=== PATIENT | male | born 1995 | race Two or more races ===

== ENCOUNTER 2016-07-09 02:37 | Emergency (ER) | payer MEDICAID ==
[2016-07-09 02:42] VITALS: BP 129/74
--- NOTE | 2016-07-09 03:45 | EDPHY ---
HPI/HX/ROS/PE/MDM Narrative: Chief complaint: Sore throat, sweats, HPI: 20-year-old male presenting with 2 days of sore throat, pain with swallowing. Subjective fevers and chills. He has a history of the same. Has not been told he has had strep or mono in the past. No chest pain shortness of breath. No nausea or vomiting. Denies past medical history. ROS: 10 point Review of Systems is negative except as noted in the HPI. Physical exam: Gen: Awake, Alert, No Distress HEENT: Nose: no rhinorrhea Eyes: PERRLA, EOMI Mouth: Moist mucosa significant bilateral tonsillar hypertrophy with exudate. There is no peritonsillar swelling. There is no uvular shift. No findings suggestive of a peritonsillar abscess at this time. Neck: Supple, no JVD, moderate cervical lymphadenopathy Chest: nontender, lungs clear to auscultation Heart: S1, S2 normal, no murmur Abd: Soft, non-tender, no guarding Back: no CVA tenderness, no midline tenderness Ext: no edema, non-tender Skin: no rash Neuro: CN II-XII intact, Sensation grossly intact, Strength 5/5 in bilateral upper and lower extremities ED Course: Strep screen and mono are negative. Will discharge patient with oral analgesia instructions follow with primary care physician in 2-3 days for re-evaluation. - Data Points Laboratory Results: 07/09/16 07/09/16 07/09/16 Unknown 03:46 03:15 Monoscreen NEGATIVE (NEGATIVE) Group A Strep Screen NEGATIVE (NEGATIVE) Group A Strep DNA Pending General Time Seen by Provider: 07/09/16 03:33 Initial Vital Signs: Initial Vital Signs Temperature (C) 37.7 C 07/09/16 02:39 Heart Rate 90 07/09/16 02:39 Respiratory Rate 16 07/09/16 02:39 Blood Pressure 129/74 H 07/09/16 02:39 O2 Sat (%) 93 07/09/16 02:39 O2 Delivery Mode Room Air Allergies/Adverse Reactions: No Known Allergies Allergy (Verified 02/03/16 13:54) Home Medications: Medication Instructions Recorded NO HOME MEDICATIONS 11/19/10 Hydrocodone/Acetaminophen 1 - 2 each PO Q4-6PRN PRN #10 07/09/16 [Hydrocodon-Acetaminophen 5-325] tablet Departure - Departure Disposition: Home, Routine, Self-Care Clinical Impression: Tonsillitis Condition: Good Instructions: Tonsillitis (ED) Additional Instructions: May take ibuprofen and acetaminophen as needed for pain. You may take hydrocodone for worsening pain. Do not take hydrocodone if you're taking the cecum in a fan. Follow up with primary care physician in 2-3 days for re-evaluation. Prescriptions: Hydrocodone/Acetaminophen [Hydrocodon-Acetaminophen 5-325] 1 - 2 each PO Q4- 6PRN PRN #10 tablet PRN Reason: Pain, Severe
[2016-07-09] MEDS ORDERED: HYDROCOD/APAP 5/325 PREPACK#6 BTL TAKEHOME ONE (04:30)
[2016-07-09] MEDS ORDERED: DEXAMETHASONE VARIABLE DOSE IVP/PO ONE (04:30)
[2016-07-09] MEDS ORDERED: DEXAMETHASONE 10 MG/ML VIAL ONE (04:43)
[2016-07-09 04:59] VITALS: TEMP 98.4; O2SAT 97
[2016-07-09 05:00] VITALS: PULSE 76; RESP 18
== END 2016-07-09 05:00 | disposition home or self-care (01) ==
DX: J03.90 Acute tonsillitis, unspecified (principal)

== ENCOUNTER 2016-07-18 17:24 | Emergency (ER) | payer MEDICAID ==
[2016-07-18 17:49] VITALS: BP 121/62; PULSE 67; RESP 17; TEMP 97.2; O2SAT 97
--- NOTE | 2016-07-18 18:37 | EDPHY ---
HPI/HX/ROS/PE/MDM Narrative: Chief complaint: Insect bite right leg HPI: 20-year-old male presenting with a spot on his right inner thigh. Started out as a small area like a pimple. He notices 1st couple of days ago. He did not squeeze it. He still has an area of redness there. He has been applying a peroxide which strauss. Has not been spreading. No fevers or chills. Is concerned he may have had an insect bite. ROS: 10 point Review of Systems is negative except as noted in the HPI. Physical exam: General: Awake, alert, no acute distress Right leg: He has a very small 5 mm is spot of erythema on his right inner thigh. There is some mild crusting over the top. There is no surrounding erythema. There is no fluctuance. There is no fluid collection underneath. He has no lymphadenopathy. Skin: Per right leg, otherwise no rash. General Time Seen by Provider: 07/18/16 18:25 Initial Vital Signs: Initial Vital Signs Temperature (C) 36.2 C 07/18/16 17:46 Heart Rate 67 07/18/16 17:46 Respiratory Rate 17 07/18/16 17:46 Blood Pressure 121/62 H 07/18/16 17:46 O2 Sat (%) 97 07/18/16 17:46 O2 Delivery Mode Room Air Allergies/Adverse Reactions: No Known Allergies Allergy (Verified 02/03/16 13:54) Home Medications: Medication Instructions Recorded NK [No Known Home Meds] 07/18/16 Departure - Departure Disposition: Home, Routine, Self-Care Clinical Impression: Skin lesion Condition: Good Instructions: Insect Bite or Sting (ED) Additional Instructions: Follow up with primary care physician at [facility] in about a week if symptoms are not improving. Referrals: NONE *PRIMARY CARE P,. [Primary Care Provider] - As per Instructions [facility] [Outside] - As per Instructions
== END 2016-07-18 18:41 | disposition home or self-care (01) ==
DX: L98.9 Disorder of the skin and subcutaneous tissue, unspecified (principal)

== ENCOUNTER 2017-03-16 06:00 | Emergency (ER) | payer MEDICAID ==
[2017-03-16 06:08] VITALS: BP 125/88; PULSE 87; RESP 18; TEMP 99.1; O2SAT 95
--- NOTE | 2017-03-16 06:20 | EDPHY ---
H & P Stated Complaint: sore throat difficulty swallowing HPI/ROS: HPI CHIEF COMPLAINT: Sore throat HISTORY OF PRESENT ILLNESS: This patient 21-year-old male otherwise healthy presents emergency room sore throat x2 days subjective fever. And has pain when he swallows. No change in phonation. No drooling. No trouble breathing. Denies any other complaints. This been present for 2 days. Past Medical History: No significant medical history Past Surgical History: Surgical history consistent of boxer's fracture right hand 5th digit. Social History: Denies daily use of drugs alcohol tobacco products. Family History: Noncontributory ROS REVIEW OF SYSTEMS: A comprehensive 10 point review of systems is otherwise negative aside from elements mentioned in the history of present illness. Exam Constitutional appears well nontoxic, triage nursing summary reviewed, vital signs reviewed, awake/alert. Eyes normal conjunctivae and sclera, EOMI, PERRLA. HENT posterior pharynx shows 3+ erythematous tonsils symmetrical uvula midline , no asymmetry, no stridor, no hot potato voice, no exudate, no signs of Carlos' s normal inspection, atraumatic, moist mucus membranes, no epistaxis, neck supple/ no meningismus, no raccoon eyes. Respiratory clear to auscultation bilaterally, normal breath sounds, no respiratory distress, no wheezing. Cardiovascular rate normal, regular rhythm, no murmur, no edema, distal pulses normal. Gastrointestinal soft, non-tender, no rebound, no guarding, normal bowel sounds, no distension, no pulsatile mass. Genitourinary no CVA tenderness. Musculoskeletal no midline vertebral tenderness, full range of motion, no calf swelling, no tenderness of extremities, no meningismus, good pulses, neurovascularly intact. Skin pink, warm, & dry, no rash, skin atraumatic. Neurologic awake, alert and oriented x 3, AAOx3, moves all 4 extremities equally, motor intact, sensory intact, CN II-XII intact, normal cerebellar, normal vision, normal speech. Psychiatric normal mood/affect. Heme/Lymph/Immune no lymphadenopathy. Differential Diagnosis: Includes but is not limited to in a particular order, viral pharyngitis, strep pharyngitis, upper respiratory tract infection, mono Medical Decision Making: Plan for this patient rapid strep. Decadron dose 8 mg here. And amoxicillin for home. Decadron for home. Ibuprofen. Re-evaluation: Patient given return precautions he understands return emergency develops worsening swelling pain fever vomiting trouble breathing trouble swallowing. He understands this. Decadron as prescribed. Amoxicillin as prescribed and ibuprofen for pain control. Stay well-hydrated drink lots of fluids. Return if worse. Source: Patient - Personal History Current Tetanus/Diphtheria Vaccine: Yes Current Tetanus Diphtheria and Acellular Pertussis (TDAP): Yes - Medical/Surgical History Hx Asthma: No Hx Chronic Respiratory Disease: No Hx Diabetes: No Hx Cardiac Disease: No Hx Renal Disease: No Hx Cirrhosis: No Hx Alcoholism: No Hx HIV/AIDS: No Hx Splenectomy or Spleen Trauma: No Other PMH: PSHx: right hand sx 5th finger. PMHx: denies - Social History Smoking Status: Former smoker Constitutional: Initial Vital Signs Temperature (C) 37.3 C 03/16/17 06:04 Heart Rate 87 03/16/17 06:04 Respiratory Rate 18 03/16/17 06:04 Blood Pressure 125/88 H 03/16/17 06:04 O2 Sat (%) 95 03/16/17 06:04 O2 Delivery Mode Room Air Allergies/Adverse Reactions: No Known Allergies Allergy (Verified 02/03/16 13:54) Home Medications: Medication Instructions Recorded Amoxicillin Trihydrate [Amoxil] 500 mg PO TID 10 Days #30 cap 03/16/17 Dexamethasone [Decadron 4 MG (*)] 4 mg PO DAILY #4 tab 03/16/17 Ibuprofen [Motrin (*)] 800 mg PO Q6-8PRN #10 tab 03/16/17 Departure - Departure Disposition: Home, Routine, Self-Care Clinical Impression: Acute pharyngitis Qualifiers: Pharyngitis/tonsillitis etiology: unspecified etiology Qualified Code(s): J02.9 - Acute pharyngitis, unspecified Condition: Good Instructions: Pharyngitis (ED) Additional Instructions: 1. Drink lots of fluids stay well-hydrated. 2. Ibuprofen for pain control. 3. Decadron as prescribed for pain control inflammation. 4. Take her antibiotic and complete her antibiotic. 5. Return to the emergency room worsening symptoms questions or concerns Referrals: [facility] [Other] - As per Instructions Prescriptions: Amoxicillin Trihydrate [Amoxil] 500 mg PO TID 10 Days #30 cap Dexamethasone [Decadron 4 MG (*)] 4 mg PO DAILY #4 tab Ibuprofen [Motrin (*)] 800 mg PO Q6-8PRN #10 tab
[2017-03-16] MEDS ORDERED: DEXAMETHASONE 4 MG TAB PO ONE (06:22)
[2017-03-16] MEDS ORDERED: IBUPROFEN 800 MG TAB PO ONE (06:26)
== END 2017-03-16 06:42 | disposition home or self-care (01) ==
DX: J02.9 Acute pharyngitis, unspecified (principal); Z87.891 Personal history of nicotine dependence

== ENCOUNTER 2017-06-08 15:44 | Emergency (ER) | payer SELFPAY ==
[2017-06-08 15:53] VITALS: BP 135/71; PULSE 98; RESP 18; TEMP 99.3; O2SAT 100
--- NOTE | 2017-06-08 16:04 | EDPHY ---
H & P Stated Complaint: Flu like sxs today;daughter has strep throat;subjective fever, vom x 1 Time Seen by Provider: 06/08/17 16:04 - Personal History Current Tetanus Diphtheria and Acellular Pertussis (TDAP): Yes - Medical/Surgical History Hx Asthma: No Hx Chronic Respiratory Disease: No Hx Diabetes: No Hx Cardiac Disease: No Hx Renal Disease: No Hx Cirrhosis: No Hx Alcoholism: No Hx HIV/AIDS: No Hx Splenectomy or Spleen Trauma: No Other PMH: PSHx: right hand sx 5th finger. PMHx: denies - Social History Smoking Status: Former smoker Constitutional: Initial Vital Signs Temperature (C) 37.4 C 06/08/17 15:50 Heart Rate 98 06/08/17 15:50 Respiratory Rate 18 06/08/17 15:50 Blood Pressure 135/71 H 06/08/17 15:50 O2 Sat (%) 100 06/08/17 15:50 O2 Delivery Mode Room Air Allergies/Adverse Reactions: No Known Allergies Allergy (Verified 06/08/17 15:49) Home Medications: Medication Instructions Recorded Cephalexin [Keflex (RX)] 500 mg PO TID #30 cap 06/08/17 Ondansetron Odt [Zofran Odt 4 mg 4 mg PO Q4 PRN #10 tab 06/08/17 (RX)] Medical Decision Making ED Course/Re-evaluation: CHIEF COMPLAINT: Vomiting, sore throat HISTORY OF PRESENT ILLNESS: The patient is a 21 y/o male complaining of a sore throat, vomiting, and feeling weak. He is subjectively febrile. His daughter was recently diagnosed with strep throat. Denies shortness of breath, chest pain, headache, urinary or bowel complaints, numbness or other pertinent symptoms. REVIEW OF SYSTEMS: A 10 point review of systems was performed and is negative with the exception of the elements mentioned in the history of present illness. PHYSICAL EXAM: HR, BP, O2 Sat, RR. Temp noted General Appearance: Alert, well hydrated, appropriate, and non-toxic appearing. Head: Atraumatic without scalp tenderness or obvious injury Eyes: Pupils equal, round, reactive to light and accommodation, EOMI, no trauma , no injection. Ears: Clear bilaterally, no perforation, normal landmarks Nose: Atraumatic, no rhinorrhea, clear. Throat: Tonsils are erythematic and inflamed. No peritonsillar abscess. Mucus membranes moist. Neck: Submandibular edema. Supple, nontender. Respiratory: No retractions, no distress, no wheezes, and no accessory muscle use. Lungs are clear to auscultation bilaterally. Cardiovascular: Regular rate and rhythm, no murmurs, rubs, or gallops. Good capillary refill all extremities. Gastrointestinal: Abdomen is soft, nontender, non-distended, no masses, no rebound, no guarding, no peritoneal signs. Musculoskeletal: Normal active ROM of all extremities, atraumatic. Neurological: Alert, appropriate, and interactive. Nonfocal neuro. Skin: No rashes, good turgor, no nodules on palpation. Past medical history: Denies Past surgical history: Right hand 5th digit surgery Family history: Denies Social history: Family at bedside, lives in [place], former smoker DIFFERENTIAL DIAGNOSIS: The differential diagnosis for the patient's fever included but was not limited to pneumonia, urinary tract infection, viral syndrome, bacterial infection, meningitis, and sepsis. MEDICAL DECISION MAKING: The patient is a 21 y/o male presenting with erythematic and inflamed tonsils. There is no peritonsillar abscess. His symptoms are consistent with a bacterial pharyngitis. 60mg PO Prednisone and 500mg PO Keflex administered. Reassessed patient and discussed plan to take Keflex for his bacterial pharyngitis and Zofran for his nausea. Return precautions provided; patient is comfortable with this plan. Departure - Departure Disposition: Home, Routine, Self-Care Clinical Impression: Acute bacterial pharyngitis Condition: Good Instructions: Pharyngitis (ED), Strep Throat (ED) Additional Instructions: 1. Take Keflex as prescribed for your strep throat. Make sure to finish the entire prescription even if your symptoms improve. 2. Take Zofran as prescribed for nausea. 3. Use Tylenol 1000 mg every 4-6 hours, ibuprofen 800 mg every 6 hours as needed for fever. 4. Increase fluid intake as much as tolerated. 5. Follow up with primary care physician in 3-4 days if not improving. 6. Return to the Emergency Department for uncontrollable fever, shortness of breath, or other worsening of condition. Referrals: [facility],. [Clinic] - As per Instructions Prescriptions: Cephalexin [Keflex (RX)] 500 mg PO TID #30 cap Ondansetron Odt [Zofran Odt 4 mg (RX)] 4 mg PO Q4 PRN #10 tab PRN Reason: Nausea/Vomiting, Use 1st Report Scribed for: Lorenzo Grover Report Scribed by: Anay Nash Date of Report: 06/08/17 Time of Report: 16:05
[2017-06-08] MEDS ORDERED: CEPHALEXIN 500 MG CAP PO ONE (16:18)
[2017-06-08] MEDS ORDERED: ONDANSETRON 4MG PREPACK#2 BTL TAKEHOME ONE (16:18)
[2017-06-08] MEDS ORDERED: predniSONE 20 MG TAB PO ONE (16:18)
[2017-06-08] MEDS ORDERED: predniSONE 20 MG TAB ONE (16:38)
== END 2017-06-08 16:50 | disposition home or self-care (01) ==
DX: J02.8 Acute pharyngitis due to other specified organisms (principal); B96.89 Other specified bacterial agents as the cause of diseases classified elsewhere; Z87.891 Personal history of nicotine dependence
CPT/HCPCS: J7512